=== PATIENT | female | born 1960 | race Caucasian/White ===

== ENCOUNTER 2023-01-18 15:36 | Emergency (ER) | payer OTHER ==
[2023-01-18 16:01] VITALS: BP 193/117; PULSE 105; RESP 20; TEMP 98.2
--- NOTE | 2023-01-18 16:30 | ED ---
General Adult HPI - General Source: patient, RN notes reviewed Mode of arrival: ambulatory Limitations: no limitations <Carleen Peralta - Last Filed: 01/18/23 16:27> <Bonnie Villareal - Last Filed: 01/19/23 05:21> - General Chief complaint: Vaginal Bleeding Stated complaint: SEVERE VAGINAL BLEEDING - History of Present Illness Initial comments: 62 year old female presents to the emergency department chief complaint of vaginal bleeding, suprapubic discomfort which started today. She states that she has gone through 4 pads since 10 AM. (Carleen Peralta) 62-year-old female who is postmenopausal presented to the ER with complaint of vaginal bleeding that began yesterday. Bleeding is associated with some suprapubic cramping. Patient reports she's used a few pads today but is not completely soaking them. She does not have any chest pain palpitations or shortness of breath. She's not been sexually active in a long period of time. She has no concern for vaginal trauma. She is not established with a gyneco logist currently. (Bonnie Villareal) - Related Data Previous Rx's Medication Instructions Recorded Cephalexin [Keflex] 500 mg PO Q8HR 1 Days #15 cap 01/18/23 Allergies Allergy/AdvReac Type Severity Reaction Status Date / Time Sulfa (Sulfonamide Allergy Swelling Verified 01/18/23 15:43 Antibiotics) Review of Systems ROS Other: All systems not noted in ROS Statement are negative. <Carleen Peralta - Last Filed: 01/18/23 16:27> ROS Other: All systems not noted in ROS Statement are negative. <Bonnie Villareal - Last Filed: 01/19/23 05:21> ROS Statement: Those systems with pertinent positive or pertinent negative responses have been documented in the HPI. Past Medical History Past Medical History: No Reported History Past Surgical History: No Surgical Hx Reported Smoking Status: Never smoker Past Alcohol Use History: None Reported Past Drug Use History: None Reported <Carleen Peralta - Last Filed: 01/18/23 16:27> General Exam Limitations: no limitations <Carleen Peralta - Last Filed: 01/18/23 16:27> Limitations: no limitations General appearance: alert, in no apparent distress Eye exam: Present: normal appearance, PERRL, other (No conjunctival pallor) ENT exam: Present: normal exam Respiratory exam: Absent: respiratory distress Cardiovascular Exam: Present: regular rate GI/Abdominal exam: Present: soft. Absent: distended Rectal exam: Present: deferred Extremities exam: Present: full ROM Neurological exam: Present: alert, oriented X3 Psychiatric exam: Present: other (Appropriate situational anxiety) Skin exam: Present: warm, dry, intact, normal color <Bonnie Villareal - Last Filed: 01/19/23 05:21> - General Exam Comments Initial Comments: Visual Physical Exam Vital signs reviewed General: Well-appearing, nontoxic, no acute distress. Head: Normocephalic, atraumatic Eyes: PERRLA, EOMI ENT: Airway patent Chest: Nonlabored breathing Skin: No visual rash, normal skin tone Neuro: Alert and oriented 3 Musculoskeletal: No gross abnormalities (Carleen Peralta) Course Vital Signs 01/18/23 15:40 Temperature 98.2 F Pulse Rate 105 H Respiratory 20 Rate Blood Pressure 193/117 O2 Sat by Pulse 100 Oximetry Medical Decision Making <Carleen Peralta - Last Filed: 01/18/23 16:27> - Lab Data Result diagrams: 01/18/23 16:45 01/18/23 16:55 <Bonnie Villareal - Last Filed: 01/19/23 05:21> - Medical Decision Making I preformed the quick note portion of this chart. Electronically signed by Carleen Peralta PA-C (Carleen Peralta) The patient was seen and evaluated, history is obtained from the patient. Patient had labs which were at baseline with no significant abnormalities. Ultrasounds concerning for a thickened endometrium given the setting of patient having postmenopausal bleeding of this finding I did discuss with the patient there is high concern for this being cancerous. I recommended very close follow-up with gynecology. Return parameters including any increased blood loss, chest pain, palpitations, shortness breath, lightheadedness, diaphoresis, or any new concerns were discussed with the patient. Patient plans to follow with her primary care and gynecology. Patient discharged home in stable condition. Was pt. sent in by a medical professional or institution ([facility], [employer]PA[employer], urgent care, hospital, or skilled nursing...) When possible be specific @ -No Did you speak to anyone other than the patient for history (EMS, parent, family, police, friend...)? What history was obtained from this source @ -No Did you review nursing and triage notes (agree or disagree)? Why? @ -I reviewed and agree with nursing and triage notes Were old charts reviewed (outside hosp., previous admission, EMS record, old EKG, old radiological studies, urgent care reports/EKG's, skilled nursing records)? Report findings @ -No old charts were reviewed Differential Diagnosis (chest pain, altered mental status, abdominal pain women, abdominal pain men, vaginal bleeding, weakness, fever, dyspnea, syncope, headache, dizziness, GI bleed, back pain, seizure, CVA, palpatations, mental health)? @ -Differential for postmenopausal bleeding includes vaginal trauma, cancer EKG interpreted by me (3pts min.). @ -As above X-rays interpreted by me (1pt min.). @ -None done CT interpreted by me (1pt min.). @ -None done U/S interpreted by me (1pt. min.). @ -None done What testing was considered but not performed or refused? (CT, X-rays, U/S, labs)? Why? @ -Pelvic exam was offered but declined by the patient stating she is rather h ave it performed by the gage maker What meds were considered but not given or refused? Why? @ -None Did you discuss the management of the patient with other professionals (professionals i.e. , PA, ANTIQUE CLOCKS REPAIRER, lab, RT, psych nurse, protective services social worker, veterinary dentist, teacher, flight deck officer, catalytic case operator)? Give summary @ -No Was smoking cessation discussed for >3mins.? @ -No Was critical care preformed (if so, how long)? @ -No Were there social determinants of health that impacted care today? How? (Homelessness, low income, unemployed, alcoholism, drug addiction, transportation, low edu. Level, literacy, decrease access to med. care, fdc, rehab)? @ -No Was there de-escalation of care discussed even if they declined (Discuss DNR or withdrawal of care, Hospice)? DNR status @ -No What co-morbidities impacted this encounter? (DM, HTN, Smoking, COPD, CAD, Cancer, CVA, ARF, Chemo, Hep., AIDS, mental health diagnosis, sleep apnea, morbid obesity)? @ -None Was patient admitted / discharged? Hospital course, mention meds given and route, prescriptions, significant lab abnormalities, going to OR and other pertinent info. @ Discharge Labs and pelvic ultrasound were ordered by triage. I reviewed these results, labs were nonactionable, ultrasound concerning for thickened endometrium and a postmenopausal patient. Results were discussed with patient advised she needs close follow up with gynecology. Patient expressed understanding of this. expressed understanding patient was discharged home. Undiagnosed new problem with uncertain prognosis? @ -Yes Drug Therapy requiring intensive monitoring for toxicity (Heparin, Nitro, Insulin, Cardizem)? @ -No Were any procedures done? @ -No Diagnosis/symptom? @ Postmenopausal vaginal bleeding Acute, or Chronic, or Acute on Chronic? @ Acute Uncomplicated (without systemic symptoms) or Complicated (systemic symptoms)? @ -Dictated Side effects of treatment? @ -No Exacerbation, Progression, or Severe Exacerbation? @ -No Poses a threat to life or bodily function? How? (Chest pain, [place], [place], pneumonia, PE, COPD, DKA, ARF, appy, cholecystitis, CVA, Diverticulitis, Homicidal, Suicidal, threat to staff... and all critical care pts) @ Yes, concerned that this is malignant (Bonnie Villareal) - Lab Data Lab Results 01/18/23 01/18/23 01/18/23 Range/Units 16:27 16:45 16:55 WBC 9.4 (3.8-10.6) k/uL RBC 4.85 (3.80-5.40) m/uL Hgb 14.2 (11.4-16.0) gm/dL Hct 43.4 (34.0-46.0) % MCV 89.5 (80.0-100.0) fL MCH 29.2 (25.0-35.0) pg MCHC 32.7 (31.0-37.0) g/dL RDW 13.0 (11.5-15.5) % Plt Count 249 (150-450) k/uL MPV 8.5 Neutrophils % 73 % Lymphocytes % 19 % Monocytes % 5 % Eosinophils % 1 % Basophils % 0 % Neutrophils # 6.9 (1.3-7.7) k/uL Lymphocytes # 1.8 (1.0-4.8) k/uL Monocytes # 0.4 (0-1.0) k/uL Eosinophils # 0.1 (0-0.7) k/uL Basophils # 0.0 (0-0.2) k/uL Sodium 139 (137-145) mmol/L Potassium 4.5 (3.5-5.1) mmol/L Chloride 104 (98-107) mmol/L Carbon Dioxide 22 (22-30) mmol/L Anion Gap 13 mmol/L BUN 11 (7-17) mg/dL Creatinine 0.52 (0.52-1.04) mg/dL Est GFR (CKD-EPI)AfAm >90 (>60 ml/min/1.73 sqM) Est GFR (CKD-EPI)NonAf >90 (>60 ml/min/1.73 sqM) Glucose 91 (74-99) mg/dL Calcium 9.7 (8.4-10.2) mg/dL Total Bilirubin 1.0 (0.2-1.3) mg/dL AST 36 (14-36) U/L ALT 19 (4-34) U/L Alkaline Phosphatase 127 H (38-126) U/L Total Protein 8.2 (6.3-8.2) g/dL Albumin 4.5 (3.5-5.0) g/dL Urine Color Yellow Urine Appearance Cloudy H (Clear) Urine pH 6.5 (5.0-8.0) Ur Specific [place] 1.016 (1.001-1.035) Urine Protein 1+ H (Negative) Urine Glucose (UA) Negative (Negative) Urine Ketones Negative (Negative) Urine Blood Large H (Negative) Urine Nitrite Negative (Negative) Urine Bilirubin Negative (Negative) Urine Urobilinogen <2.0 (<2.0) mg/dL Ur Leukocyte Esterase Large H (Negative) Urine RBC >182 H (0-5) /hpf Urine WBC 107 H (0-5) /hpf Ur Squamous Epith Cells 7 H (0-4) /hpf Urine Bacteria Rare H (None) /hpf Disposition <Carleen Peralta - Last Filed: 01/18/23 16:27> Is patient prescribed a controlled substance at d/c from ED?: No <Bonnie Villareal - Last Filed: 01/19/23 05:21> Clinical Impression: Post-menopausal bleeding, UTI (urinary tract infection) Disposition: HOME SELF-CARE Condition: Stable Additional Instructions: You need follow up with a Otolaryngology Physician for further evaluation to rule out endometrial or cervical cancer Prescriptions: Cephalexin [Keflex] 500 mg PO Q8HR 1 Days #15 cap Referrals: None,Stated [REFERRING] - 1-2 days
[2023-01-18 17:33] LABS: Appearance,Urine Cloudy (Clear); Bacteria,Urine Rare /hpf; Bilirubin,Urine Negative (Negative); Blood,Urine Large (Negative); Color,Urine Yellow; Glucose,Urine (UA) Negative (Negative); Ketones,Urine Negative (Negative); Leukocyte Esterase,Urine Large (Negative); Nitrite,Urine Negative (Negative); PH, Urine 6.5 (5.0-8.0); Protein,Urine 1+ (Negative); RBC,Urine >182 /hpf (0-5); Specific Gravity,Urine 1.016 (1.001-1.035); Squamous Epithelial Cell,Urine 7 /hpf (0-4); Urobilinogen,Urine <2.0 mg/dL (<2.0); WBC,Urine 107 /hpf (0-5)
[2023-01-18 17:38] LABS: ALT 19 U/L (4-34); AST 36 U/L (14-36); African American GFR (CKD) >90 (>60 ml/min/1.73 sqM); Albumin 4.5 g/dL (3.5-5.0); Alkaline Phosphatase 127 U/L (38-126); Anion Gap 13 mmol/L; Blood Urea Nitrogen 11 mg/dL (7-17); Calcium 9.7 mg/dL (8.4-10.2); Carbon Dioxide 22 mmol/L (22-30); Chloride 104 mmol/L (98-107); Glucose 91 mg/dL (74-99); Non-African American GFR(CKD) >90 (>60 ml/min/1.73 sqM); Sodium 139 mmol/L (137-145); Total Protein 8.2 g/dL (6.3-8.2)
[2023-01-18 17:43] LABS: Basophils % (A) 0 %; Eosinophils # (A) 0.1 k/uL (0-0.7); Eosinophils % (A) 1 %; HCT 43.4 % (34.0-46.0); HGB 14.2 gm/dL (11.4-16.0); Lymphocytes # (A) 1.8 k/uL (1.0-4.8); Lymphocytes % (A) 19 %; MCH 29.2 pg (25.0-35.0); MCHC 32.7 g/dL (31.0-37.0); MCV 89.5 fL (80.0-100.0); Mean Platelet Volume 8.5; Monocytes # (A) 0.4 k/uL (0-1.0); Monocytes % (A) 5 %; Neutrophils # (A) 6.9 k/uL (1.3-7.7); Neutrophils % (A) 73 %; Platelet Count 249 k/uL (150-450); RBC 4.85 m/uL (3.80-5.40); WBC 9.4 k/uL (3.8-10.6)
[2023-01-18 17:45] LABS: Potassium 4.5 mmol/L (3.5-5.1)
--- NOTE | 2023-01-18 18:01 | US ---
EXAMINATION TYPE: US transvaginal DATE OF EXAM: 01/18/2023 COMPARISON: NONE CLINICAL INDICATION: Female, 62 years old with history of VB; Pt states bleeding since yesterday and states there was 2 episodes of "gushing". LMP over 20 yrs ago. No pelvic surgeries. Never been pregna nt. TECHNIQUE: Transvaginal (TV). Slightly limited due to body habitus, unable to fully visualize fundus of UT or adnexas. Date of LMP: Over 20 years ago EXAM MEASUREMENTS: Uterus: 10.2 x 4.7 x 4.9 cm Endometrial Stripe: 2.2 cm Right Ovary: Not seen Left Ovary: Not seen 1. Uterus: Anteverted Overall heterogeneous and appeared hypervascular near cervix. No discrete ma sses seen. 2. Endometrium: Thickened and heterogeneous 3. Right Ovary: Not seen due to atrophy and bowel gas 4. Left Ovary: Not seen due to atrophy and bowel gas 5. Bilateral Adnexa: wnl 6. Posterior cul-de-sac: wnl IMPRESSION: Thickened endometrium more than would be expected for a postmenopausal patient. Further evaluation wi th direct visualization and descending recommended.
[2023-01-18] MEDS ORDERED: CEPHALEXIN 500MG STARTER PACK 4 CAP BTL PO STA (22:48)
== END 2023-01-18 23:17 | disposition home or self-care (01) ==
LOC: EC 15:36
DX: N39.0 Urinary tract infection, site not specified (principal); N95.0 Postmenopausal bleeding; Z88.2 Allergy status to sulfonamides
CPT/HCPCS: 36415; 76830; 80053; 81001; 85025; 99284

== ENCOUNTER → 2023-01-25 | Outpatient (CLI) | payer OTHER ==
--- NOTE | 2023-01-26 09:06 | CT ---
EXAMINATION TYPE: CT abdomen pelvis w con DATE OF EXAM: 01/25/2023 COMPARISON: Ultrasound 01/18/2023 HISTORY: Post Katie bleeding x [address] DLP: 3892.2 mGycm Automated exposure control for dose reduction was used. CONTRAST: CT scan of the abdomen pelvis is performed with IV Contrast, patient injected with 100 cc mL of Isovu e 300. FINDINGS- LUNG BASES- subsegmental atelectasis both lung bases. Heart is mildly enlarged. No pleural effusion. LIVER/GB- limited due to overlying artifact with no obvious intrahepatic lesion. PANCREAS- No gross abnormality is seen. SPLEEN- limited due to artifact with no obvious focal lesion. ADRENALS- No gross abnormality is seen. KIDNEYS/BLADDER- no hydronephrosis nephrolithiasis or renal mass. BOWEL- small hiatal hernia. No evidence of obstruction. LYMPH NODES- there is borderline inguinal adenopathy bilaterally. There are lobulated nodular densit ies along the pelvic sidewall which could be related to the ovary. Lymphadenopathy not excluded. At l east one iliac chain enlarged lymph node is seen measuring 1.1 cm short axis on the right suggestive of adenopathy. Shotty areas of lymph nodes in the retroperitoneum should be monitored. OSSEOUS STRUCTURES- diffuse osteopenia with multilevel degenerative disc disease. Bilateral hip arth ropathy. OTHER- air is is lobulated and demonstrates a markedly thickened endometrium. Could not exclude a m yometrial or lower uterine segment lesion due to artifact IMPRESSION- 1. Lobulated enlarged uterus with thickened endometrium and heterogeneous attenuation. Differential d iagnosis would include endometrial pathology including endometrial hyperplasia and carcinoma. 2. A borderline inguinal lymphadenopathy. Pelvic sidewall iliac chain lymphadenopathy is suspected. R ecommend PET scan.
== END | disposition home or self-care (01) ==
LOC: RADCTMAIN 16:47
PROVIDERS: ATTEND Family Medicine
DX: N95.0 Postmenopausal bleeding (principal); N85.8 Other specified noninflammatory disorders of uterus; R93.89 Abnormal findings on diagnostic imaging of other specified body structures
CPT/HCPCS: 74177; Q9967

== ENCOUNTER → 2023-02-25 | Outpatient (CLI) | payer OTHER ==
--- NOTE | 2023-02-28 20:15 | PE ---
EXAMINATION TYPE: PET CT fusion skull to thigh DATE OF EXAM: 02/25/2023 CLINICAL INDICATION:Female, 62 years old with history of R59.0; TECHNIQUE: Following the intravenous administration of 10.4 mCi of F-18 FDG, whole body images are performed from the skull base to the midthigh. Images are reviewed on the computer in the coronal, a xial, and sagittal planes. Reconstructed rotating images are created on independent workstation and reviewed on the computer. A non-contrast CT is performed in conjunction with the PET scan. Glucose level 90 mg/dL CT DLP: 1272 mGycm, Automated exposure control for dose reduction was used. COMPARISON: CT 01/25/2023, PET/CT None, ultrasound 01/18/2023. FINDINGS: Mediastinal SUV mean is 2.75. Hepatic parenchyma SUV mean is 3.3. SKULL BASE AND NECK: No suspicious radiotracer activity. CHEST, MEDIASTINUM, AND HILAR REGION: No suspicious radiotracer activity. ABDOMEN AND PELVIS: Abnormal radiotracer activity within the pelvis: * Intense radiotracer uptake within the endometrium max SUV 77.8 * Right external iliac max SUV 31.4 measuring up to 15 mm. * Left external iliac Max SUV 35.6 measuring up to 19 mm. * Left common iliac max SUV 4.2 measuring 13 mm * Additional probable metastatic disease to smaller FDG such as series 3 image 26 measuring 5 mm in short axis max SUV 4.5. MUSCULOSKELETAL STRUCTURES: No suspicious radiotracer activity. OTHER CT: Mild cardiomegaly. Borderline Hepatic steatosis. Small hiatal hernia. 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 Direct visualization of the endometrium with tissue sampling is re commended if not already performed.
== END | disposition home or self-care (01) ==
LOC: RADPETMAIN 13:35
PROVIDERS: ATTEND Internal Medicine
DX: R59.0 Localized enlarged lymph nodes (principal)
CPT/HCPCS: 78815; A9552